=== PATIENT | male | born 1955 | race Caucasian/White ===

== ENCOUNTER 2017-11-10 08:55 | Day surgery (SDC) | payer OTHER, BC ==
[~2017-11-10 08:55] MED LIST: Lactated Ringers 1,000 ML IV SCH; Midazolam 1 MG/ML 2 ML SDV ONE; Propofol 200 MG/20 ML SDV ONE; fentaNYL 100 MCG/2 ML SDV ONE
--- NOTE | 2017-11-10 09:27 | PCM.PREANE ---
Preanesthetic Assessment - Anesthesia/Transfusion/Family Hx Anesthesia History: Prior Anesthesia Without Reaction Other Type of Anesthesia Reaction Comment: Denies any known problems in the past Family History of Anesthesia Reaction: No Transfusion History: No Prior Transfusion(s) - Review of Systems General: No Symptoms Pulmonary: No Symptoms Cardiovascular: No Symptoms Gastrointestinal: No Symptoms Neurological: No Symptoms Other: Reports: None - Physical Assessment NPO Status Date: 11/09/17 O2 Sat by Pulse Oximetry: 95 Respiratory Rate: 16 Vital Signs: Last Vital Signs Temp 36.2 C 11/10/17 09:20 Pulse 62 11/10/17 09:20 Resp 16 11/10/17 09:20 BP 141/81 H 11/10/17 09:20 Pulse Ox 95 11/10/17 09:20 Height: 1.7 m Weight: 96.162 kg ASA Class: 2 Mental Status: Alert & Oriented x3 Airway Class: Mallampati = 1 Dentition: Reports: Normal Dentition, Dentures ROM/Head Extension: Full Lungs: Clear to Auscultation, Normal Respiratory Effort Cardiovascular: Regular Rate, Regular Rhythm - Allergies Allergies/Adverse Reactions: Allergies Allergy/AdvReac Type Severity Reaction Status Date / Time No Known Allergies Allergy Verified 11/05/17 12:29 - Anesthesia Plan Pre-Op Medication Ordered: None - Acknowledgements Anesthesia Type Planned: MAC Pt an Appropriate Candidate for the Planned Anesthesia: Yes Alternatives and Risks of Anesthesia Discussed w Pt/Guardian: Yes Pt/Guardian Understands and Agrees with Anesthesia Plan: Yes Additional Comments: PMH: asthma (last albuterol use 2 mo ago, last serious exac many years ago), HLD PreAnesthesia Questionnaire HEENT History: Reports: Other (See Below) Other HEENT History: wears glasses Cardiovascular History: Reports: Other (See Below) Other Cardiovascular History: Low HDL Respiratory History: Reports: Asthma Gastrointestinal History: Reports: Hemorrhoids Musculoskeletal History: Reports: Fracture Other Musculoskeletal History: hx fx ankle, wrist and hand Neurological History: Reports: Migraines Endocrine/Metabolic History: Reports: Obesity/BMI 30+ - Past Surgical History Head Surgeries/Procedures: Reports: None HEENT Surgical History: Reports: Tonsillectomy GI Surgical History: Reports: Colonoscopy, Other (See Below) Other GI Surgeries/Procedures: sigmoidoscopy x2 - SUBSTANCE USE Smoking Status *Q: Never Smoker Recreational Drug Use History: No - HOME MEDS Home Medications: Home Meds Albuterol Sulfate [Albuterol Sulfate HFA] 2 puff IH ASDIRECTED PRN 10/08/13 [ History] Aspirin [Lite Coat Aspirin] 325 mg PO DAILY 10/08/13 [History] Multivitamin [Multi Vitamin Daily] 1 each PO DAILY 10/08/13 [History] Hydrocortisone [Hydrocortisone 2.5% Crm] 1 applic RECTAL ASDIRECTED PRN [History] Resveratrol Ultra 1 tsp PO DAILY 11/05/17 [History] Simvastatin [Zocor] 20 mg PO BEDTIME 11/05/17 [History] Ubidecarenone/[place]-3/Vit E [Co Q-10-Vit E-Fish Oil Sfgl] 1 tab PO DAILY [History] Viagra 50 mg PO ASDIRECTED PRN 11/05/17 [History] - CURRENT (IN HOUSE) MEDS Current Meds: Current Medications Lactated Ringer's (Ringers, Lactated) 1,000 mls @ 125 mls/hr IV ASDIRECTED DEBBIE Last Admin: 11/10/17 09:24 Dose: 125 mls/hr Discontinued Medications Fentanyl (Sublimaze) Confirm Administered Dose 100 mcg .ROUTE .STK-MED ONE Stop: 11/10/17 07:46 Midazolam HCl (Versed 1 Mg/Ml) Confirm Administered Dose 2 mg .ROUTE .STK-MED ONE Stop: 11/10/17 07:46 Propofol (Diprivan 20 Ml) Confirm Administered Dose 200 mg .ROUTE .STK-MED ONE Stop: 11/10/17 07:46
--- NOTE | 2017-11-10 10:44 | PCM.OPNOTE ---
- General Post-Op/Procedure Note Date of Surgery/Procedure: 11/10/17 Operative Procedure(s): Colonoscopy Pre Op Diagnosis: Personal history of colon polyps Post-Op Diagnosis: Sigmoid diverticulosis Anesthesia Technique: MAC (ASA II) Primary Surgeon: Balwinder Castro Condition: Good Free Text/Narrative:: DICTATION [id number] CPT CODE 98734
[2017-11-10] MEDS ORDERED: Lactated Ringers 1,000 ML IV SCH (10:45)
[2017-11-10] MEDS ORDERED: Lidocaine 2% 5 ML SDV ONE (11:03)
--- NOTE | 2017-11-10 11:16 | PCM.POSTAN ---
POST ANESTHESIA ASSESSMENT - MENTAL STATUS Mental Status: Alert - RESPIRATORY Respiratory Status: Respiratory Rate WNL, Airway Patent, O2 Saturation Stable - CARDIOVASCULAR CV Status: Pulse Rate WNL, Blood Pressure Stable - GASTROINTESTINAL GI Status: No Symptoms - PAIN Pain Score: 0 - POST OP HYDRATION Hydration Status: Adequate & Stable - OBSERVATIONS Free Text/Narrative:: no anesthesia problems
--- NOTE | 2017-11-10 14:57 | OR ---
SURGEON: Balwinder Castro M.D. DATE OF PROCEDURE: 11/10/2017 OPERATION PERFORMED: Colonoscopy. ANESTHESIA: MAC. ASA CLASSIFICATION: II. PREOPERATIVE DIAGNOSIS: Personal history of colon polyps. POSTOPERATIVE DIAGNOSIS: Sigmoid diverticulosis. DESCRIPTION OF PROCEDURE: The patient was taken to the endoscopy room and positioned on the endoscopy table in the left lateral decubitus position. Time-out was called for appropriate identification of the patient and procedure. Monitored anesthesia care was provided. The colonoscope was inserted into the rectum and advanced with moderate difficulty to the cecum. Despite multiple maneuvers, I could never retroflex the colonoscope in the cecum. The ileocecal valve was visualized. The appendiceal orifice was visualized and external pressure was applied to document the cecum. The colonoscope was then slowly withdrawn. The cecum, ascending colon, hepatic flexure, transverse colon, splenic flexure, and descending colon showed no tumors, polyps, diverticula, or angiodysplastic changes. There was no evidence of inflammatory bowel disease. Moderate sigmoid diverticulosis was noted. No stricture, spasm, or bleeding was noted. No polyps were encountered and again there was no evidence of inflammatory bowel disease. The colonoscope was withdrawn to the rectum and retroflexed to visualize the anal orifice from above. No tumors or polyps were seen and there were no acute hemorrhoidal changes. The colonoscope was then straightened, the rectum aspirated, and the colonoscope removed. The patient tolerated the procedure well. He was taken to recovery room in satisfactory condition. ROBBY WOOTEN /[id number]
== END 2017-11-10 11:50 | disposition home or self-care (01) ==
LOC: MW.SDS 08:55
PROVIDERS: ATTEND Surgery
DX: Z12.11 Encounter for screening for malignant neoplasm of colon (principal); K57.30 Diverticulosis of large intestine without perforation or abscess without bleeding; J45.909 Unspecified asthma, uncomplicated; E66.9 Obesity, unspecified; Z68.32 Body mass index [BMI] 32.0-32.9, adult; E78.5 Hyperlipidemia, unspecified; Z86.010 Personal history of colon polyps; Z79.82 Long term (current) use of aspirin; Z79.899 Other long term (current) drug therapy
CPT/HCPCS: 45378; J2250; J3010; J7120; J2704

== ENCOUNTER 2018-02-11 08:44 | Inpatient (IN) | payer OTHER, BC ==
[~2018-02-11 08:44] MED LIST changes: -Lactated Ringers 1,000 ML IV SCH; -Midazolam 1 MG/ML 2 ML SDV ONE; -Propofol 200 MG/20 ML SDV ONE; +ceFAZolin 2 GM in Premix Bag 1 BAG IV SCH; -fentaNYL 100 MCG/2 ML SDV ONE
[2018-02-11] MEDS: Lactated Ringers 1,000 ML IV SCH ×3 (09:17→16:42)
--- NOTE | 2018-02-11 09:33 | PCM.PREANE ---
Preanesthetic Assessment - Anesthesia/Transfusion/Family Hx Anesthesia History: Prior Anesthesia Without Reaction Other Type of Anesthesia Reaction Comment: Denies any known problems in the past Family History of Anesthesia Reaction: No Transfusion History: No Prior Transfusion(s) - Review of Systems General: No Symptoms Pulmonary: No Symptoms Cardiovascular: No Symptoms Gastrointestinal: No Symptoms Neurological: No Symptoms Other: Reports: None - Physical Assessment NPO Status Date: 02/10/18 O2 Sat by Pulse Oximetry: 96 Respiratory Rate: 16 Vital Signs: Last Vital Signs Temp 36.2 C 02/11/18 09:00 Pulse 52 L 02/11/18 09:00 Resp 16 02/11/18 09:00 BP 155/74 H 02/11/18 09:00 Pulse Ox 96 02/11/18 09:00 Height: 1.7 m Weight: 90.718 kg ASA Class: 2 Mental Status: Alert & Oriented x3 Airway Class: Mallampati = 1 Dentition: Reports: Normal Dentition ROM/Head Extension: Full Lungs: Clear to Auscultation, Normal Respiratory Effort Cardiovascular: Regular Rate, Regular Rhythm - Allergies Allergies/Adverse Reactions: Allergies Allergy/AdvReac Type Severity Reaction Status Date / Time No Known Allergies Allergy Verified 02/09/18 08:15 - Blood Blood Available: No - Anesthesia Plan Pre-Op Medication Ordered: None - Acknowledgements Anesthesia Type Planned: Spinal Pt an Appropriate Candidate for the Planned Anesthesia: Yes Alternatives and Risks of Anesthesia Discussed w Pt/Guardian: Yes Pt/Guardian Understands and Agrees with Anesthesia Plan: Yes PreAnesthesia Questionnaire HEENT History: Reports: Other (See Below) Other HEENT History: wears glasses Cardiovascular History: Reports: Other (See Below) Other Cardiovascular History: Low HDL Respiratory History: Reports: Asthma Gastrointestinal History: Reports: Hemorrhoids Musculoskeletal History: Reports: Fracture, Osteoarthritis Other Musculoskeletal History: hx fx ankle, wrist and hand Neurological History: Reports: Migraines Other Neuro History: migraines in the past Endocrine/Metabolic History: Reports: Obesity/BMI 30+ - Past Surgical History Head Surgeries/Procedures: Reports: None HEENT Surgical History: Reports: Tonsillectomy GI Surgical History: Reports: Colonoscopy, Other (See Below) Other GI Surgeries/Procedures: sigmoidoscopy x2 - SUBSTANCE USE Smoking Status *Q: Never Smoker Recreational Drug Use History: No - HOME MEDS Home Medications: Home Meds Albuterol Sulfate [Albuterol Sulfate HFA] 2 puff IH ASDIRECTED PRN 10/08/13 [ History] Aspirin [Lite Coat Aspirin] 325 mg PO DAILY 10/08/13 [History] Multivitamin [Multi Vitamin Daily] 1 each PO DAILY 10/08/13 [History] Hydrocortisone [Hydrocortisone 2.5% Crm] 1 applic RECTAL ASDIRECTED PRN [History] Resveratrol Ultra 1 tsp PO DAILY 11/05/17 [History] Simvastatin [Zocor] 20 mg PO BEDTIME 11/05/17 [History] Ubidecarenone/[place]-3/Vit E [Co Q-10-Vit E-Fish Oil Sfgl] 2 tab PO DAILY [History] Viagra 50 mg PO ASDIRECTED PRN 11/05/17 [History] - CURRENT (IN HOUSE) MEDS Current Meds: Current Medications Cefazolin Sodium/Dextrose 2 gm (/ Premix) 50 mls @ 50 mls/hr IV ONETIME DEBBIE Lactated Ringer's (Ringers, Lactated) 1,000 mls @ 125 mls/hr IV ASDIRECTED [facility] Last Admin: 02/11/18 09:17 Dose: 125 mls/hr Tranexamic Acid (Cyklokapron) 2,000 mg IV ONETIME ONE Stop: 02/11/18 10:01
[2018-02-11] MEDS ORDERED: Bupivacaine 0.5% 30 ML SDV ONE (10:08)
[2018-02-11] MEDS ORDERED: Propofol 200 MG/20 ML SDV ONE (10:22)
[2018-02-11] MEDS ORDERED: Ondansetron 4 MG/2 ML SDV ONE (10:22)
[2018-02-11] MEDS ORDERED: Rocuronium 10 MG/ML 10 ML Syringe ONE (10:22)
[2018-02-11] MEDS ORDERED: Midazolam 1 MG/ML 2 ML SDV ONE (10:22)
[2018-02-11] MEDS ORDERED: Sodium Chloride 0.9% 20 ML ONE (10:22)
[2018-02-11] MEDS ORDERED: Lidocaine 2% 5 ML SDV ONE (10:22)
[2018-02-11] MEDS ORDERED: fentaNYL 250 MCG/5 ML SDV ONE (10:22)
[2018-02-11] MEDS ORDERED: ceFAZolin 1 GM Vial ONE (10:22)
[2018-02-11] MEDS ORDERED: Glycopyrrolate 0.2 MG/ML SDV ONE (10:22)
[2018-02-11] MEDS ORDERED: ePHEDrine 50 MG/ML SDV ONE (11:35)
--- NOTE | 2018-02-11 12:38 | PCM.OPNOTE ---
- General Post-Op/Procedure Note Date of Surgery/Procedure: 02/11/18 Operative Procedure(s): left anterior total hip arthroplasty Findings: severe OA Pre Op Diagnosis: left hip osteoarthritis Post-Op Diagnosis: same Anesthesia Technique: General LMA, Spinal Primary Surgeon: Fortino Basurto Mai [employer] Loan Calculator: Amber Su Pathology: femoral head EBL in mLs: 300 Complications: none Condition: Good
[2018-02-11] MEDS ORDERED: Ondansetron 4 MG/2 ML SDV IV PRN (12:45)
[2018-02-11] MEDS ORDERED: Bisacodyl 10 MG Supp RECTAL PRN (12:45)
[2018-02-11] MEDS ORDERED: Morphine 2 MG/ML Syringe IVPUSH PRN (12:45)
[2018-02-11] MEDS ORDERED: Aluminum Hydroxide/Magnesium Hydroxide/Simethicone Susp 30 ML Cup PO PRN (12:45)
[2018-02-11] MEDS ORDERED: Albuterol 8 GM Inhaler INH PRN (12:47)
--- NOTE | 2018-02-11 13:26 | OR ---
SURGEON: Fortino Root MD DATE OF PROCEDURE: 02/11/2018 EXPERIMENTAL MACHINIST: Amber Su PA-C PREOPERATIVE DIAGNOSIS: Left hip osteoarthritis. POSTOPERATIVE DIAGNOSES: Left hip osteoarthritis. OPERATION PERFORMED: Left anterior total hip arthroplasty. ANESTHESIA: Spinal and general. COMPLICATIONS: None. ESTIMATED BLOOD LOSS: 300 mL. SPECIMENS: Femoral head. COMPLICATIONS: None. IMPLANT: Duarte Continuum trabecular metal shell with cluster holes, 54 mm outer diameter; Vivacit-E neutral liner 36 mm inner diameter; Fitmore hip stem uncemented size B extended offset 4; Biolox delta ceramic femoral head 36 mm diameter, 0 neck length. INDICATIONS: The patient is a 62-year-old male with severe arthritis. He wished to undergo replacement. He has failed conservative management, modification therapy, injections, chronic pain on a daily basis, hindering all activities. He wished to undergo replacement. He understands the risks, benefits, and complications to include but not limited to infection, neurovascular injury, continued pain, DVT, PE, stroke, TN, , leg-length discrepancy, fracture, dislocation, he wished to proceed. PROCEDURE IN DETAIL: The patient was seen in the preoperative area. Operative extremity was marked with the patient. He was transferred to the operating room, where spinal anesthesia was given. He was placed supine on the Wagner table. General anesthesia induced, and an LMA was placed. He received preop antibiotics with clindamycin and 2 g TXA. The legs were placed in leg bars on the Wagner table and the left hip was prepped and draped in usual sterile fashion using alcohol followed by ChloraPrep with Ioban covering. A formal time-out was taken identifying correct patient, procedure and extremity. An 8 cm incision starting just lateral to the ASIS going obliquely down the femur was made. Dissection was carried down to subcutaneous tissues. Hemostasis was obtained. The fascia overlying the TFL lateral to the lateral femoral cutaneous nerve was opened and the interval between TFL and sartorius deep between abductors and rectus was opened. The vastus lateralis fascia was opened. The anterior vessels were coagulated. A deep Jah retractor was placed. The indirect head of the rectus was released, and the capsule was held and tagged with 2 FiberWires for later repair. The neck was cut from saddle region to 1 cm below the lesser trochanter and the head was removed. There was noted to be severe arthritis. The inferior capsule was released preserving the iliopsoas tendon. The labral remnants were removed as well as the pulvinar and then the hip was sequentially reamed from a 47 up to 53 mm with an excellent fit and fill going slightly superior and medial. The trabecular metal shell with cluster holes was placed in 40 degrees abduction, 10 degrees of anteversion under fluoroscopic control as planned in the bed to make sure the level had excellent press fit. One neutral liner was then impacted the femoral lift was placed and the leg was externally rotated, abducted, and extended. Superior capsule obturator, internus, and piriformis were released and a central canal finer was utilized and the hip was sequentially broached from a starter rasp up to a size 4. I have trial reduced it based on preoperative templating with an standard offset 0 head. Printed overlay technique with the opposite side with fluoroscopy showed equal leg lengths. The hip was then dislocated and following the [place] version, the final B4 extended offset Fitmore stem was impacted and then the 0 neck length 36 mm head was impacted. The hip was then relocated and final x-rays confirmed equal leg length and offset. The 2 tag sutures were tied together. The fascia was closed with #1 Vicryl. Subcutaneous tissues with 2-0 Stratafix. Skin with running 4-0 Monocryl with Dermabond tape and an Aquacel. The patient was extubated in the operative room and transferred to the recovery room in stable condition. Sponge and needle counts were correct at the end of the case. No complications. The patient will be given aspirin for DVT prophylaxis. Weightbearing as tolerated. LYNDSEY WOOTEN /[id number]
--- NOTE | 2018-02-11 14:23 | PCM.POSTAN ---
POST ANESTHESIA ASSESSMENT - MENTAL STATUS Mental Status: Alert, Oriented - RESPIRATORY Respiratory Status: Respiratory Rate WNL, Airway Patent, O2 Saturation Stable - CARDIOVASCULAR CV Status: Pulse Rate WNL, Blood Pressure Stable - GASTROINTESTINAL GI Status: No Symptoms - POST OP HYDRATION Hydration Status: Adequate & Stable
[2018-02-11] MEDS: Acetaminophen/HYDROcodone 325-5 MG Tab PO PRN (17:45)
[2018-02-11] MEDS: ceFAZolin 2 GM in Premix Bag 1 BAG IV SCH ×2 (18:44→18:45)
[2018-02-11] MEDS: Ketorolac 15 MG/ML SDV IVPUSH PRN (20:21)
[2018-02-11] MEDS: Docusate Sodium 100 MG Cap PO SCH (20:25)
[2018-02-11] MEDS ORDERED: Simvastatin 20 MG Tab PO SCH (21:00)
[2018-02-12] MEDS: Acetaminophen/HYDROcodone 325-5 MG Tab PO PRN (00:54)
[2018-02-12] MEDS: Lactated Ringers 1,000 ML IV SCH (01:28)
[2018-02-12] MEDS: ceFAZolin 2 GM in Premix Bag 1 BAG IV SCH (03:42)
[2018-02-12] MEDS: Ketorolac 15 MG/ML SDV IVPUSH PRN (04:45)
[2018-02-12] MEDS ORDERED: Sodium Chloride 0.9% 2.5 ML Syringe FLUSH PRN (07:19)
[2018-02-12] MEDS ORDERED: Sodium Chloride 0.9% 10 ML Syringe FLUSH PRN (07:19)
--- NOTE | 2018-02-12 07:27 | PCM48HPAN ---
Post Anesthesia Note - EVALUATION WITHIN 48HRS OF ANESTHETIC Vital Signs in Normal Range: Yes Patient Participated in Evaluation: Yes Respiratory Function Stable: Yes Airway Patent: Yes Cardiovascular Function Stable: Yes Hydration Status Stable: Yes Pain Control Satisfactory: Yes Nausea and Vomiting Control Satisfactory: Yes Mental Status Recovered: Yes Resp Rate: 16
--- NOTE | 2018-02-12 07:29 | PCM.SN ---
- Free Text/Narrative Note: Subjective: Patient is doing very well he is amply in the hallway with minimal assistance or use a walker. He is tolerating by mouth well. He has no complaints or issues only little bit stiffness is taking minimal pain meds. Objective: Afebrile, vital signs stable Left thigh dressing is clean/dry/intact with no signs of infection or drainage. He has essentially no swelling in the thigh and none distally. He has normal sensation and motor and palpable pulses distally. Hemoglobin 12.8 A/P: POD #1 left EKATERINA - Full weightbearing with walker and PT - Ecotrin for DVT prophylaxis - Home today follow-up in 2 weeks
--- NOTE | 2018-02-12 07:32 | PCM.DCSUM1 ---
Discharge Summary - Hospital Course HPI Initial Comments: Patient was admitted for elective left hip replacement Diagnosis: Stroke: No - Discharge Data Discharge Date: 02/12/18 Discharge Disposition: Home, Self-Care 01 Condition: Good - Patient Summary/Data Operative Procedure(s) Performed: left anterior total hip arthroplasty Consults: Consultations 02/11/18 12:45 PT Evaluation and Treatment [CONS] Routine Hospital Course: A she was admitted for elective hip replacement. He did well postoperatively and was admitted to the floor where his diet was advance and he had weightbearing as tolerated with no issues. He did well was subsequent discharged home on postoperative day number - Patient Instructions Diet: Usual Diet as Tolerated Activity: Apply Ice, As Tolerated, Full Weight Bearing Driving, Other: May drive when not taking narcotics Showering/Bathing: May Shower Wound/Incision Care: Do NOT Change Dressing Notify Provider of: Fever, Swelling and Redness, Drainage - Discharge Plan *PRESCRIPTION DRUG MONITORING PROGRAM REVIEWED*: No *COPY OF PRESCRIPTION DRUG MONITORING REPORT IN PATIENT RAMO: No Home Medications: Home Meds Albuterol Sulfate [Albuterol Sulfate HFA] 2 puff IH ASDIRECTED PRN 10/08/13 [ History] Aspirin [Lite Coat Aspirin] 325 mg PO DAILY 10/08/13 [History] Multivitamin [Multi Vitamin Daily] 1 each PO DAILY 10/08/13 [History] Hydrocortisone [Hydrocortisone 2.5% Crm] 1 applic RECTAL ASDIRECTED PRN [History] Resveratrol Ultra 1 tsp PO DAILY 11/05/17 [History] Simvastatin [Zocor] 20 mg PO BEDTIME 11/05/17 [History] Ubidecarenone/[place]-3/Vit E [Co Q-10-Vit E-Fish Oil Sfgl] 2 tab PO DAILY [History] Viagra 50 mg PO ASDIRECTED PRN 11/05/17 [History] - Discharge Summary/Plan Comment DC Time >30 min.: No - Patient Data Vitals - Most Recent: Last Vital Signs Temp 36.2 C 02/12/18 04:00 Pulse 68 02/12/18 04:00 Resp 16 02/12/18 07:27 BP 117/60 02/12/18 04:00 Pulse Ox 94 L 02/12/18 04:00 Weight - Most Recent: 90.718 kg I&O - Last 24 hours: Intake & Output 02/11/18 02/12/18 02/12/18 22:59 06:59 14:59 Intake Total 250 2200 Output Total 0 1400 Balance 250 800 Lab Results - Last 24 hrs: Laboratory Results - last 24 hr 02/12/18 Range/Units 05:10 Hgb 12.5 L (13.0-17.0) g/dL Hct 35.8 L (38.0-50.0) % Med Orders - Current: Current Medications Hydrocodone Bitart/Acetaminophen (Dellrose 325-5 Mg) 1 - 2 tab PO Q4H PRN PRN Reason: Pain Last Admin: 02/12/18 00:54 Dose: 2 tab Al Hydroxide/Mg Hydroxide (Mag-Al Plus) 30 ml PO Q4H PRN PRN Reason: indigestion Albuterol (Ventolin Hfa) 8 gm INH ASDIRECTED PRN PRN Reason: Shortness of Breath Aspirin (Aspirin) 325 mg PO BID [facility] Bisacodyl (Dulcolax) 10 mg RECTAL DAILY PRN PRN Reason: Constipation Celecoxib (Celebrex) 200 mg PO DAILY [facility] Docusate Sodium (Colace) 100 mg PO BID [facility] Last Admin: 02/11/18 20:25 Dose: 100 mg Famotidine (Pepcid) 40 mg PO DAILY [facility] Fish Oil (Fish Oil) 2 gm PO DAILY [facility] Cefazolin Sodium/Dextrose 2 gm (/ Premix) 50 mls @ 50 mls/hr IV ONETIME [facility] Last Admin: 02/11/18 18:12 Dose: 50 mls/hr Lactated Ringer's (Ringers, Lactated) 1,000 mls @ 125 mls/hr IV ASDIRECTED DEBBIE Last Admin: 02/12/18 01:28 Dose: 125 mls/hr Morphine Sulfate (Morphine) 1 - 3 mg IVPUSH Q3H PRN PRN Reason: Pain Last Admin: 02/11/18 19:03 Dose: 2 mg Multivitamins/Minerals/Vitamin C (Tab-A-Gia) 1 tab PO DAILY [facility] Ondansetron HCl (Zofran) 4 mg IV Q6HR PRN PRN Reason: NAUSEA/VOMITING Last Admin: 02/11/18 19:01 Dose: 4 mg Simvastatin (Zocor) 20 mg PO BEDTIME [facility] Last Admin: 02/11/18 20:25 Dose: 20 mg Sodium Chloride (Saline Flush) 10 ml FLUSH ASDIRECTED PRN PRN Reason: Keep Vein Open Sodium Chloride (Saline Flush) 2.5 ml FLUSH ASDIRECTED PRN PRN Reason: Keep Vein Open Discontinued Medications Bupivacaine HCl (Marcaine 0.5%) Confirm Administered Dose 30 ml .ROUTE .STK-MED ONE Stop: 02/11/18 10:09 Cefazolin Sodium (Ancef) Confirm Administered Dose 2 gm .ROUTE .STK-MED ONE Stop: 02/11/18 10:23 Ephedrine Sulfate (Ephedrine Sulfate) Confirm Administered Dose 50 mg .ROUTE .STK-MED ONE Stop: 02/11/18 11:36 Fentanyl (Sublimaze) Confirm Administered Dose 250 mcg .ROUTE .STK-MED ONE Stop: 02/11/18 10:23 Glycopyrrolate (Robinul) Confirm Administered Dose 0.2 mg .ROUTE .STK-MED ONE Stop: 02/11/18 10:23 Sodium Chloride (Normal Saline) Confirm Administered Dose 20 mls @ as directed .ROUTE .STK-MED ONE Stop: 02/11/18 10:23 Cefazolin Sodium/Dextrose 2 gm (/ Premix) 50 mls @ 100 mls/hr IV Q8H DEBBIE Stop: 02/12/18 03:29 Last Admin: 02/12/18 03:42 Dose: 100 mls/hr Ketorolac Tromethamine (Toradol) 15 mg IVPUSH Q6H PRN PRN Reason: Pain Stop: 02/12/18 05:00 Last Admin: 02/12/18 04:45 Dose: 15 mg Lidocaine (Xylocaine-Mpf 2%) Confirm Administered Dose 5 ml .ROUTE .STK-MED ONE Stop: 02/11/18 10:23 Midazolam HCl (Versed 1 Mg/Ml) Confirm Administered Dose 2 mg .ROUTE .STK-MED ONE Stop: 02/11/18 10:23 Ondansetron HCl (Zofran) Confirm Administered Dose 4 mg .ROUTE .STK-MED ONE Stop: 02/11/18 10:23 Propofol (Diprivan 20 Ml) Confirm Administered Dose 200 mg .ROUTE .STK-MED ONE Stop: 02/11/18 10:23 Rocuronium [place] (Zemuron) Confirm Administered Dose 100 mg .ROUTE .STK-MED ONE Stop: 02/11/18 10:23 Tranexamic Acid (Cyklokapron) 2,000 mg IV ONETIME ONE Stop: 02/11/18 10:01 Last Admin: 02/11/18 14:20 Dose: Not Given
[2018-02-12] MEDS: Docusate Sodium 100 MG Cap PO SCH (08:21)
[2018-02-12] MEDS ORDERED: Famotidine 20 MG Tab PO SCH (09:00)
[2018-02-12] MEDS ORDERED: Aspirin 325 MG Tab PO SCH (09:00)
[2018-02-12] MEDS ORDERED: Celecoxib 100 MG Cap PO SCH (09:00)
[2018-02-12] MEDS ORDERED: Fish Oil/Omega-3 Fatty Acids 1 Gm Cap PO SCH (09:00)
[2018-02-12] MEDS ORDERED: Multivitamin Tab PO SCH (09:00)
--- NOTE | 2018-02-12 09:22 | CR ---
EXAMINATION: Left hip HISTORY: Arthroplasty COMPARISON: 11/13/2017 TECHNIQUE: 3 fluoroscopic images FINDINGS/IMPRESSION: Operative control films demonstrate placement of left total hip hardware in good position and alignment.
== END 2018-02-12 13:00 | disposition home or self-care (01) | DRG 470 ==
LOC: MW.MS 08:44
PROVIDERS: ADMIT Orthopaedic Surgery; ATTEND Orthopaedic Surgery
PROC: 0SRB0JZ Replacement of Left Hip Joint with Synthetic Substitute, Open Approach (ICD-10-PCS; principal; 2018-02-11)
DX: M16.12 Unilateral primary osteoarthritis, left hip (principal); E78.5 Hyperlipidemia, unspecified; J45.909 Unspecified asthma, uncomplicated; Z79.899 Other long term (current) drug therapy; Z79.82 Long term (current) use of aspirin
CPT/HCPCS: 36415; 76000; 76000-26; 85014; 85018; 93005; 97110-GP; 97161-GP; A9270-GY; C1776; J0690; J1885; J2250; J2270; J2405; J2704; J3010; J3490; J7120

== ENCOUNTER 2022-02-05 09:07 | Emergency (ER) | payer OTHER ==
[2022-02-05] MEDS ORDERED: Sodium Chloride 0.9% 2.5 ML Syringe FLUSH PRN (09:10)
[2022-02-05] MEDS ORDERED: Sodium Chloride 0.9% 10 ML Syringe FLUSH PRN (09:10)
[2022-02-05 10:26] LABS: CARBON DIOXIDE,CO2 25.8 mmol/L (21.0-32.0); POTASSIUM,K 4.2 mmol/L (3.5-5.1)
== END 2022-02-05 11:32 | disposition home or self-care (01) ==
LOC: MW.ED 09:07
DX: S22.20XA Unspecified fracture of sternum, initial encounter for closed fracture (principal); E66.9 Obesity, unspecified; Z68.33 Body mass index [BMI] 33.0-33.9, adult; Z79.899 Other long term (current) drug therapy; V49.88XA Car occupant (driver) (passenger) injured in other specified transport accidents, initial encounter
CPT/HCPCS: 36415; 71045; 71045-26; 71120; 71120-26; 80053; 84484; 85025; 93005; 99285